=== PATIENT | female | born 2000 | race Caucasian/White ===

== ENCOUNTER 2020-11-13 16:53 | Emergency (ER) | payer OTHER, MEDICAID, SELFPAY ==
--- NOTE | ~2020-11-13 | XR_ITS ---
EXAMINATION: XR foot RT min 3V DATE: 11/13/2020 17:21 INDICATION: Right foot pain TECHNIQUE: Dorsoplantar, lateral, and 2 oblique views of the right foot were obtained. COMPARISON: None. FINDINGS: There is no fracture, dislocation, or subluxation. The bones, soft tissues, and joint space s are normal. IMPRESSION: 1. No acute osseous abnormality. Reviewed, dictated and finalized at location A. E FOLLOWER
[2020-11-13 17:03] VITALS: BP 117/88; PULSE 88; RESP 16; TEMP 36.3; O2SAT 100
--- NOTE | 2020-11-13 17:05 | ED.LOWEXIN ---
HPI - Extremity Injury (Lower) General Chief Complaint: Extremity Problem,Nontraumatic Stated Complaint: rt foot pain Related Data Allergies Allergy/AdvReac Type Severity Reaction Status Date / Time No Known Allergies Allergy Unverified 08/02/19 07:45 Review of Systems Review of Systems: Narrative: CONSTITUTIONAL: Denies fever, chills, or sweats. EYES: Denies visual changes, redness, or discharge. ENT: Denies rhinorrhea, congestion, sore throat, or otalgia. CARDIOVASCULAR: Denies chest pain, palpitations, or edema. RESPIRATORY: Denies cough or dyspnea. GASTROINTESTINAL: Denies abdominal pain, nausea, vomiting, or diarrhea. GENITOURINARY: Denies dysuria or hematuria. SKIN: Denies rash or itching. MUSCULOSKELETAL: Right foot pain NEUROLOGIC: Denies headache, numbness, dizziness, or weakness. PSYCHIATRIC: Denies anxiety or depression. [facility] Past Medical History Medical History Migraine Surgical History Surgical History No significant past surgical history Family History Family History Other Hypertension Unknown family medical history Social History Social History Smoking status: Former smoker Second hand tobacco smoke exposure: Yes Smoking end date: 11/14/17 Alcohol intake: never Substance use: never Gender identity (if verbalized by the patient): Female Spiritual care concerns: No Exam Narrative: Exam Narrative: GENERAL: Well-appearing, well-nourished, and in no acute distress. HEAD: Normocephalic, atraumatic. EYES: No redness or drainage. ENT: Mucous membranes pink and moist. CHEST: No respiratory distress. EXTREMITIES: Right lateral foot tenderness with palpation no visible deformity, good pedal pulse, distal sensation intact, good capillary refill SKIN: Warm, dry, no rash. NEURO: No focal deficits. Alert and oriented x3. Gait steady. PSYCH: Normal affect. No signs of depression or anxiety. Course Vital Signs Vital signs: Reviewed MDM - Extremity Injury (Lower) MDM Narrative Medical decision making narrative: Patient's x-ray is negative. Discussed with patient most likely musculoskeletal pain. Kev wrap applied for comfort, instructed on use of Tylenol and ibuprofen. Patient is stable for discharge home with outpatient follow-up with PCP in 3 to 5 days if symptoms persist. Differential Diagnosis Differential diagnosis: Likely other (Sprain, strain, contusion, plantar fasciitis) Imaging Data Radiologist's impression: ITS Impressions Foot X-Ray 11/13/20 17:31 IMPRESSION: 1. No acute osseous abnormality. Critical Care Time Critical Care Time Critical Care Time: No Discharge Plan Discharge Clinical Impression: Foot pain, right Patient Disposition: Home, Self-Care Condition: Stable Instructions: Metatarsalgia (DC) Additional Instructions: Keep Kev wrap in place for comfort, rest ice elevate, Tylenol or ibuprofen for pain. Follow-up with your PCP in 3 to 5 days if symptoms persist. Follow-up/Referrals: PHYSICIAN,PHARMACY TECHNOLOGY INSTRUCTOR [Primary Care Provider] - Time of Disposition: 17:38
== END 2020-11-13 17:43 | disposition home or self-care (01) ==
PROVIDERS: Emergency Provider Nurse Practitioner
DX: M79.671 Pain in right foot (principal); Z87.891 Personal history of nicotine dependence
CPT/HCPCS: 73630; 99213; G0463

== ENCOUNTER 2022-02-21 16:09 | Emergency (ER) | payer OTHER, MEDICAID, SELFPAY ==
--- NOTE | ~2022-02-21 | XR_ITS ---
EXAMINATION: XR chest 2V Exam Date/Time: 02/21/2022 17:18 CDT CLINICAL HISTORY: COUGH, congestion x 3 days;smoker; hx of HTN Comparison: 08/02/2019. RESULT: Lines, tubes, and devices: None. Lungs and pleura: Clear. Cardiomediastinal silhouette: Stable cardiomediastinal silhouette. Other: No acute osseous or upper abdominal finding. IMPRESSION: No acute cardiopulmonary process. Reviewed, dictated and finalized at location K.
[2022-02-21 16:33] VITALS: BP 150/103; PULSE 96; RESP 16; TEMP 36.8; O2SAT 100
--- NOTE | 2022-02-21 17:18 | ED.GENADULT ---
HPI - General Adult General Chief complaint: Upper Respiratory Infection Stated complaint: cough,body sores Source: patient Mode of arrival: ambulatory Limitations: no limitations History of Present Illness HPI narrative: Patient presents for evaluation of respiratory symptoms for last 2 days. Symptoms include cough, runny nose, hot flashes, body aches, pleuritic chest pain, nausea, and vomiting. She denies diarrhea. She has been taking a cough suppressant which has not helped. Her children are here being seen for similar symptoms. No hx of COVID. No COVID vaccination received in past. She did get a flu shot this year. She smokes marijuana. No other complaints or concerns. Related Data Home Medications Medication Instructions Recorded Confirmed No Home Medications 02/21/22 02/21/22 Allergies Allergy/AdvReac Type Severity Reaction Status Date / Time No Known Allergies Allergy Verified 02/21/22 16:31 Review of Systems Review of Systems: CONSTITUTIONAL:Reports hot flashes and chills. EYES: Denies visual changes, redness, or discharge. ENT: Reports runny nose and sore throat. Denies otalgia CARDIOVASCULAR:Reports pleuritic chest pain. Denies palpitations, or edema. RESPIRATORY: Reports cough. Denies SOB GASTROINTESTINAL: Reports nausea and vomiting. Denies diarrhea or abdominal pain. GENITOURINARY: Denies dysuria or hematuria. SKIN: Denies rash or itching. MUSCULOSKELETAL: Denies back pain, joint pain, or myalgia. NEUROLOGIC: Reports generalized body aches PSYCHIATRIC: Denies anxiety or depression. [facility] Past Medical History Medical History (Updated 02/21/22 @ 18:28 by BOB Isaac, ) Migraine Surgical History Surgical History History of cholecystectomy Family History Family History Mother Bipolar disorder Substance abuse Social History Social History Smoking status: Former smoker Second hand tobacco smoke exposure: Yes Smoking end date: 11/14/17 Alcohol intake: never Substance use: never Gender identity (if verbalized by the patient): Female Spiritual care concerns: No Exam Narrative: GENERAL: Well-appearing, well-nourished, and in no acute distress. HEAD: Normocephalic, atraumatic. EYES: PERRLA and EOMI. ENT: Nares clear, no rhinorrhea or epistaxis. Mucous membranes moist. Oropharynx without tonsillar hypertrophy exudate or other lesions. Bilateral TMs pearly navarrete nonbulging NECK: Supple. No adenopathy or masses. No carotid bruits or JVD CHEST: Cough presents. Lungs clear to auscultation. No respiratory distress. No wheezes rales or rhonchi HEART: Regular rate and rhythm. No murmur heard. Normal peripheral pulses. ABDOMEN: Soft, nontender, nondistended, normal active bowel sounds. EXTREMITIES: Normal range of motion. No edema. SKIN: Warm, dry, no rash. NEURO: No focal deficits. Alert and oriented x3. PSYCH: Normal mood and affect. Course Course Emergency Course: This is a 21-year-old female who present with complaints of respiratory symptoms. Covid, influenza, chest x-ray were negative. Likely viral URI. Advised supportive care. She does not talk appearing. Follow-up outpatient for further evaluation treatment and return for worsening symptoms. Patient agreed with plan of care. Level of Care: Express Care Visit Vital Signs Vital signs: Vital Signs Temperature 36.8 C 02/21/22 16:33 Pulse Rate 96 02/21/22 16:33 Respiratory Rate 16 02/21/22 16:33 Blood Pressure 150/103 H 02/21/22 16:33 Pulse Oximetry 100 02/21/22 16:33 Temperature 36.8 C 02/21/22 16:33 Pulse Rate 96 02/21/22 16:33 Respiratory Rate 16 02/21/22 16:33 Blood Pressure 150/103 H 02/21/22 16:33 Pulse Oximetry 100 02/21/22 16:33 Medical Decision Making Differential D
== END 2022-02-21 18:45 | disposition home or self-care (01) ==
PROVIDERS: Emergency Provider Nurse Practitioner
DX: J06.9 Acute upper respiratory infection, unspecified (principal); F12.90 Cannabis use, unspecified, uncomplicated; Z87.891 Personal history of nicotine dependence
CPT/HCPCS: 71046; 87426; 87804; 99213; C9803; G0463

== ENCOUNTER 2022-04-10 04:53 | Emergency (ER) | payer OTHER, MEDICAID, SELFPAY ==
[2022-04-10 04:56] VITALS: BP 159/93; PULSE 94; RESP 18; TEMP 36.8; O2SAT 100
[2022-04-10] MEDS: HYDROcodone/acetaminophen (*CRX) 10-325 MG TABLET 1 TAB PO (05:41)
--- NOTE | 2022-04-10 06:00 | ED.EAR ---
HPI - Ear Problem General Chief complaint: Ear Stated complaint: Right ear pain Time Seen by Provider: 04/10/22 05:03 History of Present Illness HPI Narrative: Patient is a 21-year-old female who presents ER with right ear pain. Sudden onset 1 hour ago. Reports she is recently had sinus congestion and cough. Pain radiates into her jaw but no dental pain. No fevers chills or sweats. No muffled hearing. No drainage from the ear. Patient is without dizziness. Related Data Allergies Allergy/AdvReac Type Severity Reaction Status Date / Time No Known Allergies Allergy Verified 02/21/22 16:31 Review of Systems Constitutional: Constitutional: Denies chills and Denies fever(s) ENT: Denies vertigo and Reports nasal congestion Comments: Right ear pain Respiratory: Respiratory: Denies cough and Denies dyspnea PMFSH Past Medical History Medical History (Updated 04/10/22 @ 06:06 by Long Phoenix MD) Migraine Surgical History Surgical History History of cholecystectomy Family History Family History Mother Bipolar disorder Substance abuse Social History Social History Smoking status: Former smoker Second hand tobacco smoke exposure: Yes Smoking end date: 11/14/17 Alcohol intake: never Substance use: never Gender identity (if verbalized by the patient): Female Spiritual care concerns: No Exam Narrative: GENERAL: Uncomfortable-appearing, well-nourished, and in no acute distress. HEAD: Normocephalic, atraumatic. EYES: PERRL and EOMI. ENT: Mucous membranes moist. Right TM bulging and erythematous, no perforation or discharge. No cerumen in ear canal. Left TM nonbulging and opaque. NEURO: Alert and oriented x3. PSYCH: Normal mood and affect. Course Course Emergency Course: Otitis media versus parotitis. Will place on antibiotics and antihistamines. Vital Signs Vital signs: Vital Signs Temperature 98.2 F 04/10/22 04:56 Pulse Rate 94 04/10/22 04:56 Respiratory Rate 18 04/10/22 04:56 Blood Pressure 159/93 H 04/10/22 04:56 Pulse Oximetry 100 04/10/22 04:56 Temperature 98.2 F 04/10/22 04:56 Pulse Rate 94 04/10/22 04:56 Respiratory Rate 18 04/10/22 04:56 Blood Pressure 159/93 H 04/10/22 04:56 Pulse Oximetry 100 04/10/22 04:56 Medical Decision Making Vital Signs Vital Signs: Vital Signs Temperature 98.2 F 04/10/22 04:56 Pulse Rate 94 04/10/22 04:56 Respiratory Rate 18 04/10/22 04:56 Blood Pressure 159/93 H 04/10/22 04:56 Pulse Oximetry 100 04/10/22 04:56 Temperature 98.2 F 04/10/22 04:56 Pulse Rate 94 04/10/22 04:56 Respiratory Rate 18 04/10/22 04:56 Blood Pressure 159/93 H 04/10/22 04:56 Pulse Oximetry 100 04/10/22 04:56 Discharge Plan Discharge Clinical Impression: Otitis media Patient Disposition: Home, Self-Care Condition: Stable Instructions: Antibiotic Form, Ear Infection (ED) Additional Instructions: Return the ER if you have fever over 100.4 ?F, you cannot keep down food or water, you have chest pain or shortness of breath, you have additional concerns. Prescriptions: New amoxicillin-pot clavulanate 875-125 mg tablet 1 tablet PO Q12H Qty: 14 0RF cetirizine 10 mg tablet 10 mg PO DAILY Qty: 10 0RF Follow-up/Referrals: PHYSICIAN,RETAIL DEPARTMENT MANAGER [Primary Care Provider] - Kirill Daniel MD [Physician] - 1 Week
[2022-04-10 06:36] VITALS: BP 142/97; PULSE 83; RESP 16; O2SAT 100
== END 2022-04-10 06:25 | disposition home or self-care (01) ==
LOC: ANHED 06:09
PROVIDERS: Emergency Provider Emergency Medicine
DX: H66.91 Otitis media, unspecified, right ear (principal)
CPT/HCPCS: 99283; A9270

== ENCOUNTER 2022-09-26 08:35 | Emergency (ER) | payer OTHER, MEDICAID, SELFPAY ==
--- NOTE | ~2022-09-26 | CT_ITS ---
EXAMINATION: CT abdomen pelvis wo con DATE: 09/26/2022 10:28 INDICATION: Lower abdominal pain TECHNIQUE: Computed tomography (CT) of the abdomen and pelvis was performed without intravenous contr ast. The dose-length product (DLP) was 1628.95 mGy-cm. Automated exposure control and iterative recon struction technique were employed. COMPARISON: 09/19/2018 FINDINGS: The lung bases are clear. The heart size is normal. There are changes of interval cholecyst ectomy. The liver, spleen, pancreas, and adrenal glands are normal. The kidneys are unremarkable. No pathologically enlarged abdominal or pelvic lymph nodes are identified. There is no free intraperiton eal gas or evidence of bowel obstruction. There is mild lumbar spondylosis. There is a small fat-cont aining umbilical hernia. IMPRESSION: 1. No CT correlate for the patient's symptoms. Reviewed, dictated and finalized at location A. R TAILER
[2022-09-26 08:37] VITALS: BP 144/85; PULSE 90; RESP 18; TEMP 36.4; O2SAT 99
--- NOTE | 2022-09-26 08:47 | ED.ABDPAIN ---
HPI - Abdominal Pain General Chief Complaint: Abdominal Pain Stated Complaint: low back pain, abdominal pain Time Seen by Provider: 09/26/22 08:43 Source: patient and RN notes reviewed Mode of arrival: ambulatory Limitations: no limitations History of Present Illness HPI narrative: 22 years old white female wake up with pain at the suprapubic area and lower back. She denies any fever, chills, nausea, vomiting. Related Data Allergies Allergy/AdvReac Type Severity Reaction Status Date / Time No Known Allergies Allergy Verified 02/21/22 16:31 Review of Systems Review of Systems: All systems reviewed & are unremarkable except as noted in HPI and below PMFSH Past Medical History Medical History Migraine Surgical History Surgical History History of cholecystectomy Family History Family History Mother Bipolar disorder Substance abuse Social History Social History Smoking status: Former smoker Second hand tobacco smoke exposure: Yes Smoking end date: 11/14/17 Alcohol intake: never Substance use: never Gender identity (if verbalized by the patient): Female Spiritual care concerns: No Exam Narrative: General appearance: Well-developed, well-nourished Skin: Normal color Head: Normocephalic, nontraumatic Eyes: Clear conjunctiva ENT: Oropharynx normal, ears normal, nose normal Neck: Supple, nontender Chest and respiratory: Airway patent, no respiratory distress, no accessory muscle use Heart: Regular rate/rhythm Abdomen: Soft, suprapubic tenderness,, no organomegaly, quiet bowel sounds Vascular: Normal peripheral pulses, normal capillary refill. Musculoskeletal: Mild diffuse tenderness across lumbar area,, no flank tenderness Neurologic: Alert and oriented ?3, OFFBEARER is normal as tested, no gross motor deficit Course Course Emergency Course: Work-up showed that the patient have urinary tract infection, patient is sexually active, no fever, no chills, no nausea or vomiting, normal white count,. CT abdomen and pelvis without contrast showed no acute abnormalities. Pyelonephritis is less likely. Staff have difficulty to get IV access,. Vital Signs Vital signs: Vital Signs Temperature 36.4 C L 09/26/22 08:37 Pulse Rate 90 09/26/22 08:37 Respiratory Rate 18 09/26/22 08:37 Blood Pressure 144/85 H 09/26/22 08:37 Pulse Oximetry 99 09/26/22 08:37 Oxygen Delivery Room Air 09/26/22 08:37 Temperature 36.4 C L 09/26/22 08:37 Pulse Rate 90 09/26/22 08:37 Respiratory Rate 18 09/26/22 08:37 Blood Pressure 144/85 H 09/26/22 08:37 Pulse Oximetry 99 09/26/22 08:37 Oxygen Delivery Room Air 09/26/22 08:37 MDM - Abdominal Pain Differential Diagnosis Differential diagnosis: Likely acute appendicitis, calculus of kidney, constipation and diverticulitis Lab Data Result diagrams: 09/26/22 08:59 09/26/22 08:59 Labs: Lab Results 09/26/22 09/26/22 09/26/22 Range/Units 08:59 08:59 08:59 WBC 10.0 (4.5-10.0) K/mm3 RBC 4.67 (4.2-5.4) M/mm3 Hgb 12.0 D (12.0-15.0) g/dL Hct 37.3 (37.0-47.0) % MCV 79.9 L (80-100) fl MCH 25.7 L (26-34) pg MCHC 32.2 (32-36) g/dl RDW 14.1 (11.5-14.5) % Plt Count 332 (150-375) k/mm3 MPV 8.0 (7.4-10.4) fl Immature Gran % (Auto) 0.4 (0-0.5) % Neut % (Auto) 69.0 (45.5-73.1) % Lymph % (Auto) 22.6 (18.3-44.2) % Crowley % (Auto) 6.9 (2.6-8.5) % Eos % (Auto) 0.7 (0-
[2022-09-26 09:05] LABS: Basophils Percent Auto 0.4 % (0.2-1.2); Eosinophils Absolute Auto 0.1 K/mm3 (0-0.3); Eosinophils Percent Auto 0.7 % (0-4.4); Hematocrit 37.3 % (37.0-47.0); Immature Granulocyte Absolute 0.04 K/mm3 (0.00-0.031); Immature Granulocyte Percent A 0.4 % (0-0.5); Lymphocytes Absolute Auto 2.25 K/mm3 (0.9-3.2); Lymphocytes Percent Auto 22.6 % (18.3-44.2); Mean Corpuscular HGB Conc 32.2 g/dl (32-36); Mean Corpuscular Hemoglobin 25.7 pg (26-34); Mean Corpuscular Volume 79.9 fl (80-100); Monocytes Absolute Auto 0.7 K/mm3 (0.1-0.6); Monocytes Percent Auto 6.9 % (2.6-8.5); Neutrophils Absolute Auto 6.9 K/mm3 (1.3-6.7); Platelet Count Result 332 k/mm3 (150-375); Red Blood Count 4.67 M/mm3 (4.2-5.4); Red Cell Distribution Width 14.1 % (11.5-14.5)
[2022-09-26 09:10] LABS: Appearance Urine Cloudy (Clear); Bilirubin Urine Negative (Negative); Blood Urine 2+ (Negative); Color Urine Yellow (Yellow); Glucose Urine UA Negative (Negative); Ketones Urine Negative (Negative); Leukocyte Esterase Ur Trace LEU/UL (Negative); Nitrate Urine Negative (Negative); Protein Urine 2+ mg/dL (Negative); Specific Grav Ur 1.025 (1.001-1.035); Urobilinogen Urine 0.2 mg/dL (<2.0)
[2022-09-26 09:14] LABS: Alanine Aminotransferase 26 U/L (6-35); Albumin Level 4.2 g/dL (3.5-5.1); Alkaline Phosphatase 88 U/L (38-126); Anion Gap 7 mmol/L (8-16); Aspartate Amino Transferase 23 U/L (14-36); Bilirubin,Total 0.4 mg/dL (0.2-1.3); Blood Urea Nitrogen 15 mg/dL (7-17); Calcium 8.9 mg/dL (8.4-10.2); Carbon Dioxide 25 mmol/L (22-30); Chloride 105 mmol/L (98-107); Estimated CRCL calculation 150 ml/min; Estimated Glomerular Filt Rate > 60; Glucose 125 mg/dL (65-110); Potassium 3.9 mmol/L (3.4-5.0); Sodium 137 mmol/L (137-145)
[2022-09-26 09:21] LABS: Bacteria Urine Trace /hpf; Mucus Urine Rare /lpf; RBC Urine >75 /hpf (0-2); Squamous Epithelial Cell Urine Moderate /hpf (Few); WBC Urine 51-75 /hpf
[2022-09-26 09:23] LABS: Add Urine Microscopic? YES
--- NOTE | 2022-09-26 10:10 | PC.NURSE ---
Pt was stuck twice by two different RN's. Unable to obtain IV access. Pt does not wish to be stuck again. MD Mcintyre made aware, per verbal orders from MD Mcintyre, switch CT order to without contrast. CT called by RN. Pt updated.
[2022-09-26] MEDS: ACETAMINOPHEN 325 MG TABLET 650 MG PO (11:40)
[2022-09-26] MEDS: IBUPROFEN 400 MG TABLET 800 MG PO (11:41)
[2022-09-26] MEDS: SULFAMETHOXAZOLE/TRIMETHOPRIM 400/80 MG TABLET 1 TAB PO (11:41)
[2022-09-26 11:45] VITALS: BP 142/86; PULSE 86; RESP 18; O2SAT 98
== END 2022-09-26 11:47 | disposition home or self-care (01) ==
PROVIDERS: Emergency Provider Emergency Medicine
DX: N39.0 Urinary tract infection, site not specified (principal); Z87.891 Personal history of nicotine dependence
CPT/HCPCS: 36415; 74176; 74177; 80053; 81001; 81025; 85025; 87077; 87086; 87088; 99284; A9270; Q9967

== ENCOUNTER 2023-10-26 23:18 | Emergency (ER) | payer OTHER, SELFPAY ==
--- NOTE | ~2023-10-26 | CT_ITS ---
Noncontrast CT scan of the lumbar spine CLINICAL HISTORY: Back pain TECHNIQUE: Axial noncontrast imaging of the lumbar spine was performed. Sagittal and coronal reformat hortensia images were constructed. Dose reduction technique was used on this scan by utilizing automated ex posure control and iterative reconstruction technique. The dose-length product (DLP) was 1708.15 mGy- cm. FINDINGS: There is no fracture or subluxation of the lumbar spine. Vertebral bodies maintain normal h eight. Intervertebral disc spaces are well preserved. At L1-L2, L2-L3, L3-4, there is no disc bulge or herniation. No spinal canal stenosis or neural biju inal narrowing at these levels. At L4-L5, there is probable minimal disc bulge. No spinal canal stenosis or definite neural foraminal narrowing. At L5-S1, there is probable minimal bilateral neural foraminal narrowing. No central canal stenosis. Paravertebral soft tissues are unremarkable. Impression: Minimal degenerative spondylosis, as above. Reviewed, dictated and finalized at location M. ASST Impression: Minimal degenerative spondylosis, as above.
[2023-10-26 23:20] VITALS: BP 148/111; PULSE 93; RESP 22; TEMP 36.9; O2SAT 99
--- NOTE | 2023-10-27 00:30 | ED.BACK ---
HPI - Back Pain/Injury General Chief Complaint: Back Pain/Injury Stated Complaint: back pain Time Seen by Provider: 10/26/23 23:52 Source: patient Mode of arrival: ambulatory Limitations: no limitations History of Present Illness HPI Narrative: Patient is a 23-year-old female who presents ED with report of lower back pain. Patient reports pain has been ongoing for the last 1-2 months. She was previously seen at an urgent care and prescribed methocarbamol and naproxen. She has been taking these as prescribed, but denies improvement. Denies any initial injury or recent strenuous activity. States pain became worse today and began to radiate down her R leg which prompted her presentation. Took 2 methocarbamol today and naproxen at 5pm. Denies bowel/bladder incontinence, saddle anesthesia, numbness in lower extremities, weakness in lower extremities, abdominal pain, fevers. Related Data Allergies Allergy/AdvReac Type Severity Reaction Status Date / Time No Known Allergies Allergy Verified 02/21/22 16:31 Review of Systems Review of Systems: CONSTITUTIONAL: Denies fever, chills, or sweats. CARDIOVASCULAR: Denies chest pain. RESPIRATORY: Denies dyspnea. GASTROINTESTINAL: Denies incontinence, abdominal pain, nausea, vomiting, or diarrhea. GENITOURINARY: Denies incontinence, dysuria or hematuria. MUSCULOSKELETAL: See HPI. NEUROLOGIC: Denies headache, dizziness, numbness, or weakness. All systems reviewed & are unremarkable except as noted in HPI and below PMFSH Past Medical History Medical History Migraine Surgical History Surgical History History of cholecystectomy Family History Family History Mother Bipolar disorder Substance abuse Social History Social History Smoking status: Former smoker Second hand tobacco smoke exposure: Yes Smoking end date: 11/14/17 Alcohol intake: never Substance use: never Gender identity (if verbalized by the patient): Female Spiritual care concerns: No Exam Narrative: GENERAL: Mildly uncomfortable appearing, morbidly obese with BMI of 51.5, non-toxic, in mild acute distress due to pain. HEAD: Normocephalic, atraumatic. RESPIRATORY: Airway patent, respirations nonlabored. Clear to auscultation bilaterally, no rales, rhonchi, wheezing. CARDIOVASCULAR: Regular rate and rhythm without murmurs, rubs, or gallops. ABDOMINAL: Soft, nontender, nondistended. Normoactive BS. MUSCULOSKELETAL: Moves all extremities. No gross deformities. No appreciable direct midline spinal tenderness throughout lumbar region. Tenderness to bilateral paraspinal musculature, worse on right side. Patient screaming out in pain with any light touch of back. Screaming out in pain with any small movement on the ED stretcher. Sensation intact. SKIN: Warm, dry, normal color. NEURO: A&O X3. Speech clear. Cranial nerves II-XII grossly intact. No ataxic movements. PSYCHIATRIC: Anxious, tearful. Normal interaction. Course Vital Signs Vital signs: Vital Signs Temperature 98.5 F 10/26/23 23:20 Pulse Rate 93 10/26/23 23:20 Respiratory Rate 22 H 10/26/23 23:20 Blood Pressure 148/111 H 10/26/23 23:20 Pulse Oximetry 99 10/26/23 23:20 Oxygen Delivery Room Air 10/26/23 23:20 Temperature 98.5 F 10/26/23 23:20 Pulse Rate 94 10/27/23 02:46 Respiratory Rate 16 10/27/23 02:46 Blood Pressure 144/100 H 10/27/23 02:46 Pulse Oximetry 100 10/27/23 02:46 Oxygen Delivery Room Air 10/26/23 23:20 MDM - Back Pain/Injury MDM Narrative Medical decision making narrative: Patient presented to ED with 2 month hx of lower back pain. No significant injury. Pain is positional and localized to paraspinal muscles without signs of cord compre
[2023-10-27] MEDS: ACETAMINOPHEN 500 MG TABLET 1000 MG PO (00:44)
[2023-10-27] MEDS: diazePAM INJ (*CRX) 10 MG/2 ML SYRINGE 2 MG IM (00:44)
[2023-10-27] MEDS: methylPREDNISolone SOD SUCC 125 MG VIAL IM (00:44)
[2023-10-27] MEDS: HYDROmorphone HCL INJ (*CRX) 1 MG/ML SYR IM (02:45)
[2023-10-27 02:46] VITALS: BP 144/100; PULSE 94; RESP 16; O2SAT 100
[2023-10-27 03:24] VITALS: BP 140/98; PULSE 89; RESP 18; O2SAT 98
== END 2023-10-27 03:25 | disposition home or self-care (01) ==
PROVIDERS: Emergency Provider Physician Assistant
DX: M54.50 Low back pain, unspecified (principal); M79.604 Pain in right leg; M51.36 Other intervertebral disc degeneration, lumbar region; Z90.49 Acquired absence of other specified parts of digestive tract; Z87.891 Personal history of nicotine dependence
CPT/HCPCS: 72131; 96372; 99284; A9270; J1170; J2930; J3360

== ENCOUNTER 2025-04-18 12:38 | Outpatient (CLI) | payer OTHER, SELFPAY ==
[2025-04-18 19:20] LABS: Add Urine Microscopic? YES; Appearance Urine Cloudy (Clear); Bacteria Urine Rare /hpf; Bilirubin Urine Negative (Negative); Blood Urine Negative (Negative); Color Urine Yellow (Yellow); Glucose Urine UA Negative (Negative); Ketones Urine Negative (Negative); Leukocyte Esterase Ur Negative LEU/UL (Negative); Nitrate Urine Negative (Negative); Non Pathogenic Casts 0-2; Protein Urine Negative (Negative); RBC Urine 0-2 /hpf (0-2); Specific Grav Ur 1.014 (1.001-1.035); Squamous Epithelial Cell Urine Many /hpf (Few); WBC Urine 0-5 /hpf (0-3)
[2025-04-18 20:34] LABS: Basophils Percent Auto 0.5 % (0.2-1.2); Eosinophils Absolute Auto 0.1 K/mm3 (0-0.3); Eosinophils Percent Auto 1.1 % (0-4.4); Hematocrit 41.4 % (37.0-47.0); Hemoglobin 12.9 g/dL (12.0-15.0); Immature Granulocyte Absolute 0.31 K/mm3 (0.00-0.031); Immature Granulocyte Percent A 3.8 % (0-0.5); Lymphocytes Absolute Auto 2.26 K/mm3 (0.9-3.2); Lymphocytes Percent Auto 27.5 % (18.3-44.2); Mean Corpuscular HGB Conc 31.2 g/dl (32-36); Mean Corpuscular Hemoglobin 26.7 pg (26-34); Mean Corpuscular Volume 85.5 fl (80-100); Mean Platelet Volume 8.6 fl (7.4-10.4); Monocytes Absolute Auto 0.7 K/mm3 (0.1-0.6); Monocytes Percent Auto 8.7 % (2.6-8.5); Neutrophils Absolute Auto 4.8 K/mm3 (1.3-6.7); Neutrophils Percent Auto 58.4 % (45.5-73.1); Platelet Count Result 415 k/mm3 (150-375); Red Blood Count 4.84 M/mm3 (4.2-5.4); Red Cell Distribution Width 13.8 % (11.5-14.5); White Blood Count 8.2 K/mm3 (4.5-10.0)
[2025-04-18 20:37] LABS: Alanine Aminotransferase 55 U/L (6-35); Albumin Level 4.2 g/dL (3.5-5.1); Alkaline Phosphatase 83 U/L (38-126); Anion Gap 9 mmol/L (4-12); Aspartate Amino Transferase 59 U/L (14-36); Bilirubin,Total 0.5 mg/dL (0.2-1.3); Blood Urea Nitrogen 11 mg/dL (7-17); Calcium 9.4 mg/dL (8.4-10.2); Carbon Dioxide 26 mmol/L (22-30); Chloride 104 mmol/L (98-107); Cholesterol 209 mg/dL (0-200); Estimated Glomerular Filt Rate > 60; Glucose 98 mg/dL (65-110); HDL Direct 38 mg/dL; LDL Cholesterol Direct 117 mg/dL; Potassium 3.8 mmol/L (3.4-5.0); Sodium 139 mmol/L (137-145); Total Protein 7.7 g/dL (6.3-8.2); Triglycerides 167 mg/dL (<150)
[2025-04-18 22:22] LABS: Hemoglobin A1C 5.1 % (<5.7)
== END 2025-04-18 12:39 | disposition home or self-care (01) ==
PROVIDERS: PCP Nurse Practitioner Family; Visit Provider Nurse Practitioner Family
DX: R73.09 Other abnormal glucose (principal); Z00.00 Encounter for general adult medical examination without abnormal findings; Z13.6 Encounter for screening for cardiovascular disorders; Z13.29 Encounter for screening for other suspected endocrine disorder; Z13.0 Encounter for screening for diseases of the blood and blood-forming organs and certain disorders involving the immune mechanism
CPT/HCPCS: 36415; 80053; 80061; 81001; 83036; 84443; 85025

== ENCOUNTER 2025-07-15 20:09 | Emergency (ER) | payer OTHER, SELFPAY ==
--- NOTE | ~2025-07-15 | XR_ITS ---
EXAM/ PROCEDURE: XR knee RT min 4V - 07/15/2025 20:44 CDT HISTORY: 24 years old Female with fall COMPARISON: None available TECHNIQUE: Three view(s) FINDINGS/ IMPRESSION: There are no fractures or dislocations.Joint spaces are within normal limits. Reviewed, dictated and finalized at location N.
--- NOTE | ~2025-07-15 | XR_ITS ---
EXAMINATION: XR ankle RT min 3V, XR foot RT min 3V DATE: 07/15/2025 20:59 INDICATION: Right foot and ankle pain post fall TECHNIQUE: 1. Anteroposterior, mortise and lateral view of the right ankle were obtained. 2. Dorsoplantar, oblique and lateral views of the right foot were obtained. COMPARISON: None. FINDINGS: Alignment of the right foot and ankle is normal. No fracture. Joint spaces are well maintained. No ankle joint effusion. The soft tissues are unremarkable. IMPRESSION: 1. Negative right foot and ankle radiographs. Reviewed, dictated and finalized at location A. IMPRESSION: 1. Negative right foot and ankle radiographs.
[2025-07-15 20:15] VITALS: BP 156/108; PULSE 97; RESP 24; TEMP 37.3; O2SAT 99
--- NOTE | 2025-07-15 20:24 | ED.LOWEXIN ---
HPI - Extremity Injury (Lower) General Chief Complaint: Extremity Injury, Lower Stated Complaint: ankle pain Time Seen by Provider: 07/15/25 20:11 History of Present Illness HPI Narrative: 24 y/o F presents to the ED for right ankle and foot pain after a mechanical fall that occurred today. Patient states she was walking and accidentally rolled her ankle. She is reporting pain to the lateral aspect of her foot in the since with swelling. Also having some mild knee pain. She denies other injuries acquired including head injury. She states she has been having difficulty bearing weight since. She is not taking anything for pain. Related Data Allergies Allergy/AdvReac Type Severity Reaction Status Date / Time No Known Allergies Allergy Verified 02/21/22 16:31 Review of Systems Review of Systems: All systems reviewed & are unremarkable except as noted in HPI and below PMFSH Past Medical History Medical History Hyperlipidemia PTSD (post-traumatic stress disorder) Bipolar disorder Anxiety disorder with panic attacks Seasonal allergies BMI 70 and over, adult Elevated BP without diagnosis of hypertension Encounter to establish care Elevated glucose Migraine Surgical History Surgical History History of cholecystectomy Family History Family History Mother Bipolar disorder Substance abuse Social History Social History Smoking status: Former smoker Second hand tobacco smoke exposure: Yes Smoking end date: 11/14/17 Alcohol intake: current Alcohol use details: occassionally Substance use: current Substance use type: marijuana Gender identity (if verbalized by the patient): Female Spiritual care concerns: No Exam Narrative: GENERAL: Tearful HEAD: Normocephalic, atraumatic. EYES: EOMI. ENT: Nares clear, no rhinorrhea or epistaxis. Mucous membranes moist. NECK: Supple. CHEST: Clear to auscultation. No respiratory distress. HEART: Regular rate and rhythm. No murmur heard. Normal peripheral pulses. EXTREMITIES: RLE: Mild tenderness to the proximal tibia with no obvious deformity, edema, overlying skin changes. Full range of motion of knee without difficulty. Tenderness and edema to the right lateral malleolus and over the 4th and 5th metatarsals. No overlying skin changes. No obvious deformity. Patient able wiggle toes, plantar flex and dorsiflex. No tenderness remainder of extremity. Negative Godinez's test. DP pulse 2 +. Sensation intact. Compartments soft SKIN: Warm, dry, no rash. NEURO: No focal deficits. Alert and oriented x3 Course Vital Signs Vital signs: Vital Signs Temperature 99.2 F 07/15/25 20:15 Pulse Rate 97 07/15/25 20:15 Respiratory Rate 24 H 07/15/25 20:15 Blood Pressure 156/108 H 07/15/25 20:15 Pulse Oximetry 99 07/15/25 20:15 Oxygen Delivery Room Air 07/15/25 20:15 Temperature 99.2 F 07/15/25 20:15 Pulse Rate 97 07/15/25 20:15 Respiratory Rate 24 H 07/15/25 20:15 Blood Pressure 156/108 H 07/15/25 20:15 Pulse Oximetry 99 07/15/25 20:15 Oxygen Delivery Room Air 07/15/25 20:15 MDM - Extremity Injury (Lower) MDM Narrative Medical decision making narrative: 24-year-old female presents emergency department for right ankle, foot and knee pain after mechanical fall that occurred earlier today. See HPI for further history. Triage vitals with hypertension mild tachypnea 24, patient is tearful on evaluation. Exam is notable for the above. Patient is neurovascularly intact. X-rays of the knee, foot and ankle show no acute osseous findings. Patient updated on results. She received ibuprofen nose placed in an Kev wrap and provided crutches with improvement in symptoms. On re-evaluation she is resting comfortably in exam chair. Discussed RICE, NSAIDs and close follow-up with PCP. She is given strict ED return precautions. She is agreeable with the plan verbalized understanding. Discharged in stable condition Discharge Plan Discharge Clinical Impression: Right ankle sprain Qualifiers: Encounter type: initial encounter Involved ligament of ankle: unspecified ligament Qualified Code(s): S93.401A - Sprain of unspecified ligament of right ankle, initial encounter Knee sprain Qualifiers: Encounter type: initial encounter Involved ligament of knee: unspecified ligament Laterality: right Qualified Code(s): S83.91XA - Sprain of unspecified site of right knee, initial encounter Patient Disposition: Home Condition: Stable Instructions: Antibiotic Form, Ankle Sprain (DC), Knee Sprain (DC) Additional Instructions: Please rest, ice, elevate and keep your ankle compressed. Take the ibuprofen as prescribed and follow-up closely with her primary care provider. Return to the emergency department if you develop any new or worsening symptoms. Patient Language: Burkinan Prescriptions: New ibuprofen 800 mg tablet 800 mg PO TID PRN (Reason: pain) Qty: 20 0RF No Action Zepbound 5 mg/0.5 mL pen injector 5 mg subcut WEEKLY Qty: 2 5RF quetiapine 25 mg tablet 25 mg PO QHS Qty: 30 5RF propranolol 10 mg tablet 10 - 20 mg PO BID PRN (Reason: anxiety) Qty: 60 3RF Follow-up/Referrals: Michelle Castro NP [Primary Care Provider, Family Practice]
[2025-07-15] MEDS: IBUPROFEN 400 MG TABLET 800 MG PO (20:27)
== END 2025-07-15 23:15 | disposition home or self-care (01) ==
PROVIDERS: Emergency Provider Physician Assistant; PCP Nurse Practitioner Family
DX: S93.401A Sprain of unspecified ligament of right ankle, initial encounter (principal); S83.91XA Sprain of unspecified site of right knee, initial encounter; E78.5 Hyperlipidemia, unspecified; F43.10 Post-traumatic stress disorder, unspecified; F31.9 Bipolar disorder, unspecified; F41.9 Anxiety disorder, unspecified; W01.0XXA Fall on same level from slipping, tripping and stumbling without subsequent striking against object, initial encounter
CPT/HCPCS: 73564; 73610; 73630; 99284; A9270

== ENCOUNTER 2025-08-26 13:54 | Emergency (ER) | payer OTHER, SELFPAY ==
[2025-08-26] VITALS (11 sets, daily range): BP systolic 103–148; BP diastolic 76–95; PULSE 59–87; RESP 9–24; TEMP 36.3; O2SAT 95–99
--- NOTE | 2025-08-26 14:11 | PC.NURSE ---
spoke to [place] [facility] Propranolol Peaks in 4 Hrs possible Bradycardia-- Atropine then Give Glucagon 2-10mg IVP, IF NEEDING MORE START INFUSION 2-15MG/HR Hypotension-- start IVF-- if needed would use Nor-Epi or EPI Infusion EKG- if wide QRS-Bicarb bolus Medical screening labs, watch for Hypocalcemia Symptomatic care
--- NOTE | 2025-08-26 14:19 | PC.NURSE ---
This RN spoke with Anita from poison control. Case #[id number]. Recommended orders from poison control placed as protocol. Additional Recommendations: -minimum 6 hour observation from time of ingestion. medication taken at 1130 today. -monitor for hypotension -monitor for bradycardia -propranolol places pt. at an increased risk for seizures and can be a STAPLER HAND depressant. Administer benzos as needed. -propanolol ingestions can go south quickly. If this happens, call poison control back and we will consult our toxicology team.
--- NOTE | 2025-08-26 14:25 | ECG_ITS ---
Test Date: 2025-08-26 14:58:24 Measurements Intervals Pax Rate: 65 P: 17 OK: 169 QRS: 11 QRSD: 112 T: 13 QT: 384 QTc: 400 Interpretive Statements SINUS RHYTHM INTRAVENTRICULAR CONDUCTION DELAY BASELINE ARTIFACT- III BORDERLINE ECG No previous ECG available for comparison Electronically Signed On 08-26-2025 15:38:32 CDT by Baldemar Giordano D.O.
--- OUTSIDE RECORDS SUMMARY | 2025-08-26 15:07 | XMS_ITS | Clinical Summary ---
Author Organization [facility] Natanael Ulien Address [address] [place] [address] Care Team Providers Care Brine Tank Operator Name Role Phone Orquidea Jones MD Primary Care Provider Source Comments [facility],non-owned Affiliates and Associated Physician Practices is amultiple site organization consisting of ambulatory clinics and hospital sitesin [place], [place], [place] and [place]. This disclosure is being madepursuant to the Care Everywhere program and may not contain all information available regarding this patient. Last updated 18.[employer] [facility] Allergies No known active allergies Medications * Be aware that medications may not be up to date on this document. Alwaysverify current medications with the patient. No known medications Active Problems Problem Noted Date Diagnosed Date Intentional ingestion/suicide attempt 10/24/2014 Assessment & Plan (10/24/2014 7:55 PM REVIEW APPRAISER): Assessment: 14 y/o with notable psychiatric history here with intentional ingestion of second generation neuroleptic about 600 mg of ziprasidone. Only reported symptoms of dizziness and altered mental status. 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 Cardiovascular complications include sinus tachycardia and QTc prolongation. Some symptoms of respiratory distress has also been seen in overdose up to 1-2 days. Spoke with poison control who stated that at 600 mg this is a toxic dose, peak level for therapeutic dose 3-5 hours. Recommended monitoring overnight. QTc previously prolonged, now normal. Patient feels well and denies symptoms mentioned above. Medically cleared for discharge to psych facility; CI contacted. Plan: -Con't monitoring while awaiting psych bed Assessment & Plan (10/24/2014 2:03 AM REVIEW APPRAISER): Assessment: 14 y/o with notable psychiatric history here with intentional ingestion of second generation neuroleptic about 600 mg of ziprasidone. Only reported symptoms of dizziness and altered mental status. Currently sleeping comfortably. EKG normal here. All other labs normal. 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 Cardiovascular complications include sinus tachycardia and QTc prolongation. Some symptoms of respiratory distress has also been seen in overdose up to 1-2 days. Spoke with poison control who stated that at 600 mg this is a toxic dose, peak level for therapeutic dose 3-5 hours. Recommended monitoring overnight. Plan: -admit to general medicine -central intake consult when medically stable -continuous cardiorespiratory monitors -hold psych meds at this point -[facility] Immunizations Immunization Administration Dates Next Due DTaP VACCINE IM (6wk-6yrs) 03/15/2006,,03/15/2001,01/13/2001,11/16 HEP A PEDS 2 DOSE 03/15/2006,12/07/2004 HEP B VACCINE, PED/ADOL 03/15/2001,2000, HIB BOOSTER 03/04/2002,03/15/2001,01/13/2001 ,2000 MMR 03/15/2006,04/03/2002 POLIO IPV 04/03/2006,11/29/2002,01/13/2001 ,2000 PPD 03/15/2006 VARICELLA 09/28/2001 Family History Medical History Relation Name Comments Depression Father Depression Mother Relation Name Status Comments Father Mother Social History Tobacco Use Types Packs/Day Years Used Date Smoking Tobacco: Former Cigarettes Smokeless Tobacco: Never Alcohol Use Standard Drinks/Week Comments Yes 0 (1 standard drink = 0.6 oz pure alcohol) Has not had a drink for 1 year per patient Comments No Sex and Gender Information Value Date Recorded Sex Assigned at Not on file Legal Sex Female 6:47 AM REVIEW APPRAISER Gender Identity Not on file Sexual Orientation Not on file Last Filed Vital Signs Vital Sign Reading Time Taken Comments Blood Pressure 134/52 10/25/2014 5:06 PM REVIEW APPRAISER Pulse 68 10/25/2014 5:06 PM REVIEW APPRAISER Temperature 37.1 C (98.8 F) 10/25/2014 5:06 PM REVIEW APPRAISER Respiratory Rate 16 10/25/2014 5:06 PM REVIEW APPRAISER Oxygen Saturation 99% 10/24/2014 9:03 AM REVIEW APPRAISER Inhaled Oxygen Concentration - - Weight 117.9 kg (260 lb) 10/23/2014 10:20 PM REVIEW APPRAISER Height 161 cm (5' 3.39) 10/24/2014 9:23 AM REVIEW APPRAISER Body Mass Index 45.5 10/23/2014 10:20 PM REVIEW APPRAISER Plan of Treatment Health Maintenance Due Date Last Done Comments DTAP/TDAP/TD VACCINES (6 - Tdap) 2011 03/15/2006, 11/29/2002, 03/15/2001, Additional history exists HIV SCREENING 2015 HPV VACCINE (1 - 3-dose series) 2015 CHLAMYDIA/GONORRHEA SCREENING 2016 HEPATITIS C SCREENING 09/10/2018 DEPRESSION SCREENING 11/14/2024 COVID-19 VACCINE ( season) 2025 INFLUENZA VACCINE (#1) 2025 ZOSTER VACCINE (1 of 2) 2050 HEPATITIS B VACCINE Completed 03/15/2001, 2000, 2000 HIB VACCINE Completed 03/04/2002, 12/2000, 01/13/2001, Additional history exists MENINGOCOCCAL (Group B) VACCINE SHARED DECISION-MAKING Aged Out No longer eligible based on patient's age to complete this topic MENINGOCOCCAL GROUPS A/C/Y/W VACCINE Aged Out No longer eligible based on patient's age to complete this topic PNEUMOCOCCAL VACCINE Aged Out No long er eligible based on patient's age to complete this topic Insurance [facility] MEDICAID - OUT OF STATE AET Care Teams Brine Tank Operator Relationship Specialty Start Date End Date Orquidea Jones MD PCP - General 09/13/18
[2025-08-26 15:13] LABS: Acetaminophen < 10 ug/mL (10-30); Salicylate < 1.0 mg/dL (2-20)
[2025-08-26 15:18] LABS: Alanine Aminotransferase 53 U/L (6-35); Albumin Level 4.1 g/dL (3.5-5.1); Alkaline Phosphatase 84 U/L (38-126); Anion Gap 7 mmol/L (4-12); Aspartate Amino Transferase 35 U/L (14-36); Bilirubin,Total 0.6 mg/dL (0.2-1.3); Blood Urea Nitrogen 10 mg/dL (7-17); Calcium 9.1 mg/dL (8.4-10.2); Carbon Dioxide 26 mmol/L (22-30); Chloride 105 mmol/L (98-107); Estimated CRCL calculation 156 ml/min; Estimated Glomerular Filt Rate > 60; Glucose 100 mg/dL (65-110); Hematocrit 40.5 % (37.0-47.0); Hemoglobin 13.0 g/dL (12.0-15.0); Immature Granulocyte Percent A 0.2 % (0-0.5); Lymphocytes Absolute Auto 2.14 K/mm3 (0.9-3.2); Magnesium 1.8 mg/dL (1.6-2.3); Mean Corpuscular HGB Conc 32.1 g/dl (32-36); Mean Corpuscular Hemoglobin 26.2 pg (26-34); Mean Corpuscular Volume 81.5 fl (80-100); Nucleated Red Blood Cells Absolute Auto 0.000 K/mm3 (0.0-0.012); Nucleated Red Blood Cells Perc 0.0 % (0.0-0.2); Platelet Count Result 367 k/mm3 (150-375); Potassium 4.1 mmol/L (3.4-5.0); Red Blood Count 4.97 M/mm3 (4.2-5.4); Sodium 138 mmol/L (137-145); Total Protein 7.7 g/dL (6.3-8.2); White Blood Count 9.7 K/mm3 (4.5-10.0)
[2025-08-26 15:30] LABS: Troponin I < 0.012 ng/mL (0.000-0.034)
--- NOTE | 2025-08-26 15:31 | ED.OVERDOSE ---
HPI - Overdose General Chief Complaint: Overdose Stated Complaint: overdose Time Seen by Provider: 08/26/25 14:49 Source: patient Limitations: no limitations History of Present Illness HPI Narrative: Patient presents after an overdose, intentional. She reports taking #60 tablets of 10mg propranalol at around 1130. States she has been struggling with her mental health and feels like it was a cry for help. Initially complained of dizziness and lightheadedness, resolved now. Initially uncooperative at first but complies with protocol shortly thereafter. Denies any abdominal pain, chest pain or shortness of breath. Reports history of being hospitalized three times for suicidal ideation in the 8th grade but no issues since. Had not seen a doctor or had medical/psych care in several years but recently re-establishing care. New PCP prescribed the propranalol for anxiety. Has not re-integrated into seeing psychology/psychiatry/social work. Is also on quetiapine QHS daily; last dose was last night as prescribed. Reports not taking any of this today, intentionally or unintentionally. Related Data Allergies Allergy/AdvReac Type Severity Reaction Status Date / Time No Known Allergies Allergy Verified 08/26/25 13:55 PMFSH Past Medical History Medical History Hyperlipidemia PTSD (post-traumatic stress disorder) Bipolar disorder Anxiety disorder with panic attacks Seasonal allergies BMI 70 and over, adult Elevated BP without diagnosis of hypertension Encounter to establish care Elevated glucose Migraine Surgical History Surgical History History of cholecystectomy Family History Family History Mother Bipolar disorder Substance abuse Social History Social History Smoking status: Former smoker Second hand tobacco smoke exposure: Yes Smoking end date: 11/14/17 Alcohol intake: current Alcohol use details: occassionally Substance use: current Substance use type: marijuana Gender identity (if verbalized by the patient): Female Spiritual care concerns: No Exam Narrative: GENERAL: Well-appearing, well-nourished, and in no acute distress. HEAD: Normocephalic, atraumatic. EYES: Non injected, non icteric ENT: Nares clear, no rhinorrhea or epistaxis. Gross auditory acuity intact. NECK: Supple. No meningismus. CHEST: Speaking in full sentences. No respiratory distress. HEART: Regular rate and rhythm. Notably, not bradycardic. ABDOMEN: Obese but Soft, nondistended. No rigidity or guarding. Not peritoneal EXTREMITIES: Normal range of motion. No lower extremity edema. SKIN: Warm, dry, no rash. NEURO: No focal deficits. Alert and oriented. Answering questions. Following commands. Normal speech without aphasia or dysarthria. PSYCH: Congruent mood and affect. Calm. Good eye contact. Linear thought process. Does not appear to be responding to internal stimuli. Course Vital Signs Vital signs: Vital Signs Temperature 97.4 F L 08/26/25 13:59 Pulse Rate 73 08/26/25 13:59 Respiratory Rate 16 08/26/25 13:59 Blood Pressure 144/88 H 08/26/25 13:59 Pulse Oximetry 97 08/26/25 13:59 Oxygen Delivery Room Air 08/26/25 13:59 Temperature 97.4 F L 08/26/25 13:59 Pulse Rate 72 08/26/25 18:02 Respiratory Rate 21 H 08/26/25 18:02 Blood Pressure 103/76 08/26/25 18:02 Pulse Oximetry 99 08/26/25 18:02 Oxygen Delivery Room Air 08/26/25 13:59 MDM - Overdose MDM Narrative Medical decision making narrative: Patient presents after reportedly overdosing, taking #60 10mg tablets of propranalol at 11:30am. She is prescribed the propranolol for anxiety; prescribed by Michelle Castro, with whom she recently established care. In the emergency department she is afebrile with vital signs notable for mild hypertension. Per [place] Poison control: Propranolol Peaks in 4 Hrs possible Bradycardia-- Atropine then Give Glucagon 2-10mg IVP, IF NEEDING MORE START INFUSION 2-15MG/HR Hypotension-- start IVF-- if needed would use Nor-Epi or EPI Infusion EKG- if wide QRS-Bicarb bolus Medical screening labs, watch for Hypocalcemia Then: RN spoke with Anita from poison control. Case #[id number]. Recommended orders from poison control placed as protocol. Additional Recommendations: -minimum 6 hour observation from time of ingestion. medication taken at 1130 today. -monitor for hypotension -monitor for bradycardia -propranolol places pt. 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 Administer benzos as needed. -propanolol ingestions can go south quickly. If this happens, call poison control back and we will consult our toxicology team. Patient is on a classroom monitor and has a sitter in place given suicide/elopement precautions. QRS is not wide. Ethanol and acetaminophen level negative as is salicylate. CBC normal. Isolated ALT elevation. This is intermittently been seen before. Thyroid within normal limits. UDS with cannabinoids. test negative. I was initially under the impression that patient needed to be watched for 6 hours from time of ingestion but poison control later clarifies and states 6 hours from the time they were called ([place] poison control as opposed to [place] poison control). Given this, patient will need to be observed in ED until 8pm. However, charge aide did discuss with poison control and she was cleared. At this time medically cleared for evaluation by crisis team. Through their extensive conversation, the decision was made for safety planning and this is reasonable given patient can identify that this was a cry for help and feels confident with reasons for living which include her children. Also has a spouse. They will get a safe for the medications as an extra measure of protection. Crisis Center will be following up with her and calling tomorrow but patient also has availability of resources that are free through school (she is a student). Patient had noted several stressors and that their partner lost to family members/friends in the past month this has been stressful for all involved. Encouraged to use resources and return as needed. Stable for discharge. Differential Diagnosis Differential diagnosis: Likely drug overdose and other (suicidal ideation / suicidal attempt; depression) Lab Data Attestation: I reviewed the patient's lab results. 08/26/25 14:46 08/26/25 14:46 Labs: Lab Results 08/26/25 08/26/25 08/26/25 Range/Units 14:25 14:46 14:46 WBC 9.7 (4.5-10.0) K/mm3 RBC 4.97 (4.2-5.4) M/mm3 Hgb 13.0 (12.0-15.0) g/dL Hct 40.5 (37.0-47.0) % MCV 81.5 (80-100) fl MCH 26.2 (26-34) pg MCHC 32.1 (32-36) g/dl RDW 13.6 (11.5-14.5) % Plt Count 367 (150-375) k/mm3 MPV 8.6 (7.4-10.4) fl Immature Gran % (Auto) 0.2 (0-0.5) % Neut % (Auto) 69.6 (45.5-73.1) % Lymph % (Auto) 22.1 (18.3-44.2) % [place] % (Auto) 5.8 (2.6-8.5) % Eos % (Auto) 1.8 (0-4.4) % Baso % (Auto) 0.5 (0.2-1.2) % Lymph # (Auto) 2.14 (0.9-3.2) K/mm3 [place] # (Auto) 0.6 (0.1-0.6) K/mm3 Eos # (Auto) 0.2 (0-0.3) K/mm3 Baso # (Auto) 0.1 (0.0-0.1) K/mm3 Abs Immat Gran (auto) 0.02 (0.00-0.031) K/mm3 Absolute Neuts (auto) 6.7 (1.3-6.7) K/mm3 Absolute Nucleated RBC 0.000 (0.0-0.012) K/mm3 Nucleated RBC % 0.0 (0.0-0.2) % Sodium 138 (137-145) mmol/L Potassium 4.1 (3.4-5.0) mmol/L Chloride 105 (98-107) mmol/L Carbon Dioxide 26 (22-30) mmol/L Anion Gap 7 (4-12) mmol/L BUN 10 (7-17) mg/dL Creatinine 0.77 (0.7-1.0) mg/dL Estim Creat Clear Calc 156 ml/min Estimated GFR > 60 (59 - ) Glucose 100 (65-110) mg/dL POC Capillary Glucose (65-105) mg/dl Calcium 9.1 (8.4-10.2) mg/dL Magnesium Cancelled 1.8 Total Bilirubin 0.6 (0.2-1.3) mg/dL AST 35 (14-36) U/L ALT 53 H (6-35) U/L Alkaline Phosphatase 84 (38-126) U/L Troponin I Cancelled Total Protein (6.3-8.2) g/dL Albumin (3.5-5.1) g/dL TSH (0.465-4.680) uIU/mL Serum HCG, Qual Urine Color (Yellow) Urine Appearance (Clear) Urine pH (5.0-9.0) Ur Specific [place] (1.001-1.035) Urine Protein (Negative) mg/dL Urine Glucose (UA) (Negative) mg/dL Urine Ketones (Negative) mg/dL Ur Blood (Man) (Negative) Urine Nitrate (Negative) Urine Bilirubin (Negative) Urine Urobilinogen (<2.0) mg/dL Leukocyte Esterase Rfl (Negative) EJ/UL POC Urine HCG, Qual Negative (Negative) Salicylates (2-20) mg/dL Urine Opiates Screen (Negative) Urine Methadone Screen (Negative) Acetaminophen (10-30) ug/mL Ur Barbiturates Screen (Negative) Ur Phencyclidine Scrn (Negative) Ur Amphetamine Screen (Negative) U Benzodiazepines Scrn (Negative) Urine Cocaine Screen (Negative) U Cannabinoids Screen (Negative) Ethyl Alcohol (<10) mg/dL SARS-CoV-2 RNA (RT-PCR) (Negative) 08/26/25 08/26/25 08/26/25 Range/Units 14:46 14:47 15:05 WBC (4.5-10.0) K/mm3 RBC (4.2-5.4) M/mm3 Hgb (12.0-15.0) g/dL Hct (37.0-47.0) % MCV (80-100) fl MCH (26-34) pg MCHC (32-36) g/dl RDW (11.5-14.5) % Plt Count (150-375) k/mm3 MPV (7.4-10.4) fl Immature Gran % (Auto) (0-0.5) % Neut % (Auto) (45.5-73.1) % Lymph % (Auto) (18.3-44.2) % [place] % (Auto) (2.6-8.5) % Eos % (Auto) (0-4.4) % Baso % (Auto) (0.2-1.2) % Lymph # (Auto) (0.9-3.2) K/mm3 [place] # (Auto) (0.1-0.6) K/mm3 Eos # (Auto) (0-0.3) K/mm3 Baso # (Auto) (0.0-0.1) K/mm3 Abs Immat Gran (auto) (0.00-0.031) K/mm3 Absolute Neuts (auto) (1.3-6.7) K/mm3 Absolute Nucleated RBC (0.0-0.012) K/mm3 Nucleated RBC % (0.0-0.2) % Sodium (137-145) mmol/L Potassium (3.4-5.0) mmol/L Chloride (98-107) mmol/L Carbon Dioxide (22-30) mmol/L Anion Gap (4-12) mmol/L BUN (7-17) mg/dL Creatinine (0.7-1.0) mg/dL Estim Creat Clear Calc ml/min Estimated GFR (59 - ) Glucose (65-110) mg/dL POC Capillary Glucose 107 H (65-105) mg/dl Calcium (8.4-10.2) mg/dL Magnesium Total Bilirubin (0.2-1.3) mg/dL AST (14-36) U/L ALT (6-35) U/L Alkaline Phosphatase (38-126) U/L Troponin I < 0.012 Total Protein 7.7 (6.3-8.2) g/dL Albumin 4.1 (3.5-5.1) g/dL TSH 2.910 (0.465-4.680) uIU/mL Serum HCG, Qual Negative Urine Color (Yellow) Urine Appearance (Clear) Urine pH (5.0-9.0) Ur Specific [place] (1.001-1.035) Urine Protein (Negative) mg/dL Urine Glucose (UA) (Negative) mg/dL Urine Ketones (Negative) mg/dL Ur Blood (Man) (Negative) Urine Nitrate (Negative) Urine Bilirubin (Negative) Urine Urobilinogen (<2.0) mg/dL Leukocyte Esterase Rfl (Negative) EJ/UL POC Urine HCG, Qual (Negative) Salicylates < 1.0 L (2-20) mg/dL Urine Opiates Screen (Negative) Urine Methadone Screen (Negative) Acetaminophen < 10 L (10-30) ug/mL Ur Barbiturates Screen (Negative) Ur Phencyclidine Scrn (Negative) Ur Amphetamine Screen (Negative) U Benzodiazepines Scrn (Negative) Urine Cocaine Screen (Negative) U Cannabinoids Screen (Negative) Ethyl Alcohol < 10 (<10) mg/dL SARS-CoV-2 RNA (RT-PCR) Negative (Negative) 08/26/25 Range/Units 15:19 WBC (4.5-10.0) K/mm3 RBC (4.2-5.4) M/mm3 Hgb (12.0-15.0) g/dL Hct (37.0-47.0) % MCV (80-100) fl MCH (26-34) pg MCHC (32-36) g/dl RDW (11.5-14.5) % Plt Count (150-375) k/mm3 MPV (7.4-10.4) fl Immature Gran % (Auto) (0-0.5) % Neut % (Auto) (45.5-73.1) % Lymph % (Auto) (18.3-44.2) % [place] % (Auto) (2.6-8.5) % Eos % (Auto) (0-4.4) % Baso % (Auto) (0.2-1.2) % Lymph # (Auto) (0.9-3.2) K/mm3 [place] # (Auto) (0.1-0.6) K/mm3 Eos # (Auto) (0-0.3) K/mm3 Baso # (Auto) (0.0-0.1) K/mm3 Abs Immat Gran (auto) (0.00-0.031) K/mm3 Absolute Neuts (auto) (1.3-6.7) K/mm3 Absolute Nucleated RBC (0.0-0.012) K/mm3 Nucleated RBC % (0.0-0.2) % Sodium (137-145) mmol/L Potassium (3.4-5.0) mmol/L Chloride (98-107) mmol/L Carbon Dioxide (22-30) mmol/L Anion Gap (4-12) mmol/L BUN (7-17) mg/dL Creatinine (0.7-1.0) mg/dL Estim Creat Clear Calc ml/min Estimated GFR (59 - ) Glucose (65-110) mg/dL POC Capillary Glucose (65-105) mg/dl Calcium (8.4-10.2) mg/dL Magnesium Total Bilirubin (0.2-1.3) mg/dL AST (14-36) U/L ALT (6-35) U/L Alkaline Phosphatase (38-126) U/L Troponin I Total Protein (6.3-8.2) g/dL Albumin (3.5-5.1) g/dL TSH (0.465-4.680) uIU/mL Serum HCG, Qual Urine Color Yellow (Yellow) Urine Appearance Clear (Clear) Urine pH 6.0 (5.0-9.0) Ur Specific [place] 1.009 (1.001-1.035) Urine Protein Negative (Negative) mg/dL Urine Glucose (UA) Negative (Negative) mg/dL Urine Ketones Negative (Negative) mg/dL Ur Blood (Man) Negative (Negative) Urine Nitrate Negative (Negative) Urine Bilirubin Negative (Negative) Urine Urobilinogen 0.2 (<2.0) mg/dL Leukocyte Esterase Rfl Negative (Negative) EJ/UL POC Urine HCG, Qual (Negative) Salicylates (2-20) mg/dL Urine Opiates Screen Negative (Negative) Urine Methadone Screen Negative (Negative) Acetaminophen (10-30) ug/mL Ur Barbiturates Screen Negative (Negative) Ur Phencyclidine Scrn Negative (Negative) Ur Amphetamine Screen Negative (Negative) U Benzodiazepines Scrn Negative (Negative) Urine Cocaine Screen Negative (Negative) U Cannabinoids Screen Positive A (Negative) Ethyl Alcohol (<10) mg/dL SARS-CoV-2 RNA (RT-PCR) (Negative) ECG Data EKG #1: Attestation: I personally reviewed and interpreted this ECG as follows: ECG completion date: 08/26/25 ECG completion time: 14:58 Prior ECG tracings: not available for review (no prior for comparison) Interpretation: Normal sinus rhythm at a rate of 65 beats per minute. OR interval 169. QRS 112. QT/QTC 384/400. Good R-wave progression across the precordial leads. T-wave inversion isolated to 3 but upright in contiguous inferior leads. No other T-wave inversion. Patient does have moderate intraventricular conduction delay appreciated in V1 V2 and V3. Discharge Plan Discharge Clinical Impression: Elevated ALT measurement, Suicide attempt by beta stephen overdose, Marijuana use Patient Disposition: Home Condition: Stable Instructions: Antibiotic Form, Cannabis Use Disorder (ED), Adult Overdose (ED), Suicide Prevention (ED) Additional Instructions: Use the safety plan as a guide. Use the resources you have available to you through your school but also you will be contacted by the crisis center in the next several days. Follow up with your primary care provider. Return to the emergency department with any new or worsening symptoms. Patient Language: Burkinan Prescriptions: No Action Zepbound 5 mg/0.5 mL pen injector 5 mg subcut WEEKLY Qty: 2 5RF quetiapine 25 mg tablet 25 mg PO QHS Qty: 30 5RF propranolol 10 mg tablet 10 - 20 mg PO BID PRN (Reason: anxiety) Qty: 60 3RF Follow-up/Referrals: Michelle Castro NP [Primary Care Provider, Family Practice] Stand Alone Forms: Work/School Release IP Time of Disposition: 18:32
[2025-08-26 15:33] LABS: Add Urine Microscopic? NO; Appearance Urine Clear (Clear); Glucose Urine UA Negative (Negative); Leukocyte Esterase Ur Negative LEU/UL (Negative); Nitrate Urine Negative (Negative); Specific Grav Ur 1.009 (1.001-1.035)
[2025-08-26 15:39] LABS: SARS-CoV-2 RNA PCR Negative (Negative)
[2025-08-26 15:49] LABS: Thyroid Stimulating Hormone 2.910 uIU/mL (0.465-4.680)
[2025-08-26 15:53] LABS: Cannabinoid Screen Urine Positive (Negative)
[2025-08-26 16:00] LABS: SPREG INTERNAL CONTROL Positive; Serum Qual hCG Negative
--- OUTSIDE RECORDS SUMMARY | 2025-08-26 16:18 | XMS_ITS | Clinical Summary ---
Author Organization [facility] [employer] Address [address] [place] [address] Care Team Providers Care Scarfer Operator Name Role Phone Orquidea Jones MD Primary Care Provider [phone] Source Comments [facility] [employer],non-owned Affiliates and Associated Physician Practices is amultiple site organization consisting of ambulatory clinics and hospital sitesin [place], [place], [place] and [place]. This disclosure is being madepursuant to the Care Everywhere program and may not contain all information available regarding this patient. Last updated 18.[employer] Allergies No known active allergies Medications * Be aware that medications may not be up to date on this document. Alwaysverify current medications with the patient. No known medications Active Problems Problem Noted Date Diagnosed Date Intentional ingestion/suicide attempt 10/24/2014 Assessment & Plan (10/24/2014 7:55 PM EXPANDED FUNCTION DENTAL ASSISTANT): Assessment: 14 y/o with notable psychiatric history here with intentional ingestion of second generation neuroleptic about 600 mg of ziprasidone. Only reported symptoms of dizziness and altered mental status. 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 Only reported symptoms of dizziness and altered mental status. Currently sleeping comfortably. EKG normal here. All other labs normal. 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 symptoms of dizziness, dystonic reaction, and possible [...] monitors -hold psych meds at this point -[facility] Immunizations Immunization Administration Dates Next Due DTaP [...] on file Legal Sex Female 6:47 AM EXPANDED FUNCTION DENTAL ASSISTANT Gender Identity Not on file Sexual Orientation Not on file Last Filed Vital Signs Vital Sign Reading Time Taken Comments Blood Pressure 134/52 10/25/2014 5:06 PM EXPANDED FUNCTION DENTAL ASSISTANT Pulse 68 10/25/2014 5:06 PM EXPANDED FUNCTION DENTAL ASSISTANT Temperature 37.1 C (98.8 F) 10/25/2014 5:06 PM EXPANDED FUNCTION DENTAL ASSISTANT Respiratory Rate 16 10/25/2014 5:06 PM EXPANDED FUNCTION DENTAL ASSISTANT Oxygen Saturation 99% 10/24/2014 9:03 AM EXPANDED FUNCTION DENTAL ASSISTANT Inhaled Oxygen Concentration - - Weight 117.9 kg (260 lb) 10/23/2014 10:20 PM EXPANDED FUNCTION DENTAL ASSISTANT Height 161 cm (5' 3.39) 10/24/2014 9:23 AM EXPANDED FUNCTION DENTAL ASSISTANT Body Mass Index 45.5 10/23/2014 10:20 PM EXPANDED FUNCTION DENTAL ASSISTANT Plan of Treatment Health Maintenance Due Date [...] patient's age to complete this topic Insurance [facility] MEDICAID - OUT OF STATE AET Care Teams Scarfer Operator Relationship Specialty Start Date End Date Orquidea Jones MD PCP - General 09/13/18
[2025-08-26 16:31] LABS: BEDSIDEPREGUCG Negative (Negative)
--- NOTE | 2025-08-26 17:41 | PC.NURSE ---
Spoke to [place] [facility]-[place] the pharmacist expects no symptoms to start at this time. Clear from their point of view Ref # [id number]
== END 2025-08-26 19:01 | disposition home or self-care (01) ==
PROVIDERS: Emergency Medicine; Emergency Provider Student in an Organized Health Care Education/Training Program; PCP Nurse Practitioner Family
DX: T44.7X2A Poisoning by beta-adrenoreceptor antagonists, intentional self-harm, initial encounter (principal); R74.01 Elevation of levels of liver transaminase levels; F12.90 Cannabis use, unspecified, uncomplicated; E78.5 Hyperlipidemia, unspecified; F31.9 Bipolar disorder, unspecified; F41.9 Anxiety disorder, unspecified; Z20.822 Contact with and (suspected) exposure to COVID-19
CPT/HCPCS: 36415; 80053; 80143; 80179; 80307; 81003; 81025; 82077; 82948; 83735; 84443; 84484; 84703; 85025; 87635; 93005; 99284